=== PATIENT | male | born 1940 | race Caucasian/White ===

== ENCOUNTER → 2016-10-03 | Outpatient (CLI) | payer OTHER | LOC: RAD 09:40 | PROVIDERS: ATTEND Family Medicine | DX: R42 Dizziness and giddiness (principal) | CPT/HCPCS: 70551 ==

== ENCOUNTER 2016-11-22 08:48 | Day surgery (SDC) | payer OTHER, MEDICARE ==
--- NOTE | 2016-11-16 14:08 | HISTORY AND PHYSICAL E ---
History and Physical NAME: YARIEL NOLAND : 1940 AGE: 76Y ADMITTED: 11/22/2016 ROOM: REFERRING: [place] The patient is 76, for colon screening. The patient is under treatment for gum disease. He has gum issues and he is on penicillin 4 times daily. SOCIAL HISTORY: Single. Quit smoking. Rare alcohol. SURGERIES: Cancer of skin, face. Cataract bilateral. Colonoscopy 10 years ago in [place]. He has polyps. History of polyps 10 years ago. REVIEW OF SYSTEMS: HEENT/sinuses/respiratory: Negative. Cardiac: Hypertension, high cholesterol. Endocrine negative. GI: Colon screening. FAMILY HISTORY: Oncology, hematology: Skin cancer. Father had heart disease. Mom of old age, pneumonia. PHYSICAL EXAMINATION: GENERAL: Pleasant. VITAL SIGNS: Blood pressure 130/70, pulse 80, respirations 18, temp 98. Weight 177. HEENT: Normal. NECK: Supple. CARDIOVASCULAR: Normal. LUNGS: Clear. ABDOMEN: Soft. NEUROLOGIC: Negative. CONCLUSION: Colon screening. MEDICATIONS: Cholesterol medications, omeprazole, multivitamin, penicillin. PLAN: Colonoscopy scheduled for 11/22. Today is 11/16. DICTATING PHYSICIAN: ZAN CHAVEZ M.D. [id number] PHY#: [id number] ID: [id number] JOB#: [id number] ACCT: [id number] cc:ZAN CHAVEZ M.D. >
[2016-11-22] MEDS ORDERED: PROMETHAZINE HCL INJ 25 MG/1 ML VIAL ONE (08:53)
[2016-11-22] MEDS ORDERED: NALOXONE HCL INJ/PF 0.4 MG/1 ML SDV ONE (08:53)
[2016-11-22] MEDS ORDERED: GLYCOPYRROLATE INJ 0.4 MG/2 ML VIAL ONE (08:53)
[2016-11-22] MEDS ORDERED: LIDOCAINE 2% JELLY 30 ML TUBE ONE (08:53)
[2016-11-22] MEDS ORDERED: ONDANSETRON HCL INJ/PF 4 MG/2 ML SDV ONE (08:53)
[2016-11-22] MEDS ORDERED: FLUMAZENIL INJ 0.5 MG/5 ML VIAL IV ONE (08:55)
[2016-11-22] MEDS ORDERED: GLUCAGON,HUMAN RECOMB 1 MG INJ ONE (08:55)
[2016-11-22] MEDS ORDERED: EPINEPHRINE INJ 1 MG/10 ML DISP.SYRIN ONE (08:55)
[2016-11-22] MEDS: MIDAZOLAM 2 MG/2 ML INJ ONE ×2 (09:12→09:18)
[2016-11-22] MEDS: FENTANYL CITRATE INJ/PF 100 MCG/2 ML AMPUL ONE ×3 (09:14→09:24)
[2016-11-22 10:41] VITALS: BP 126/66
[2016-11-22 10:57] LABS: HEMATOCRIT 37.1 % (37.9-51.0); HEMOGLOBIN 12.5 g/dL (13.5-17.0); HGB HCT DIFFERENCE 0.4; MEAN CORPUSCULAR HGB CONC 33.6 g/dL (32.0-36.0); MEAN CORPUSCULAR VOLUME 92 fl (80-97); RED BLOOD COUNT 4.02 10^6/uL (4.35-5.55); SEGMENTED NEUTROPHILS % (AUTO) 71.1 % (42-78); WHITE BLOOD COUNT 6.9 10^3/uL (4.0-10.5)
[2016-11-22 10:58] LABS: ABSOLUTE BASOPHILS # (AUTO) 0.1 10^3/uL (0.0-0.2); ABSOLUTE EOSINOPHILS # (AUTO) 0.3 10^3/uL (0.0-0.6); ABSOLUTE LYMPHOCYTES (AUTO) 0.8 10^3/uL (0.5-4.7); ABSOLUTE MONOCYTES (AUTO) 0.8 10^3/uL (0.1-1.4); ABSOLUTE NEUT (AUTO) 4.9 10^3/uL (1.7-8.2); BASOPHILS % (AUTO) 0.7 % (0-2); EOSINOPHILS % (AUTO) 4.7 % (0-6); LYMPHOCYTES % (AUTO) 12.2 % (13-45); MONOCYTES % (AUTO) 11.3 % (3-13)
--- NOTE | 2016-11-22 14:05 | DISCHARGE SUMMARY E ---
Discharge Summary NAME: YARIEL NOLAND : 1940 AGE: 76Y ADMITTED: 11/22/2016 DISCHARGED: 11/22/2016 SUMMARY: The patient is 76 and presented for follow-up colonoscopy. History of polyps years ago in [place], [place]. Today's colon shows diminutive rectal polyp and cecal polyp, redundant colon, difficult sigmoid and descending colon intubation. DISCHARGE PLAN: Full liquids to soft, low-residue diet in 3 days. Baseline CBC and prostatic specific antigen. Consider follow-up colonoscopy in 3-5 years. DICTATING PHYSICIAN: ZAN CHAVEZ M.D. [id number] PHY#: [id number] ID: [id number] JOB#: [id number] ACCT: [id number] cc:ZAN CHAVEZ M.D. >
--- NOTE | 2016-11-22 14:06 | OPERATIVE REPORT E ---
Operative Report NAME: YARIEL NOLAND : 1940 AGE: 76Y DATE OF SURGERY: 11/22/2016 ROOM: PREOPERATIVE DIAGNOSIS: Followup regarding history of polyps. POSTOPERATIVE DIAGNOSES: 1. External hemorrhoids. 2. Mild diminutive rectal polyps. 3. One mm cecal polyp. PROCEDURE: Colonoscopy. SURGEON: ZAN CHAVEZ M.D. ANESTHESIA: Versed 2 and fentanyl 100. TISSUE REMOVED OR ALTERED: Biopsy of cecum, 1 mm polyp. Biopsy of rectum, multiple polyps 1-2 mm in size each. Hyperplastic benign looking polyps. RECOMMENDATIONS: Followup colonoscopy 3-5 years. FINDINGS: Redundant colon. Moderate amount of full liquid stool. Colonoscopy successful to the cecum. DESCRIPTION OF PROCEDURE: Rectal exam shows enlarged prostate. The rectum shows diminutive polyps. Sigmoid descending colon redundant, normal. Transverse colon redundant, moderate amount of full liquid stool, normal. Ascending colon normal. Cecum shows diminutive polyp removed by biopsy. Ileocecal valve looks normal. Scope withdrawn from cecum, ascending, transverse, descending, sigmoid, all the way to the rectum. CONCLUSION: Diminutive rectal polyp and cecal polyp. PLAN: Hold aspirin and nonsteroidal for 3 days. Full liquid to soft low residue diet for 3 days. DICTATING PHYSICIAN: ZAN CHAVEZ M.D. [id number] Y#: [id number] ID: [id number] JOB#: [id number] ACCT: [id number] cc:ZAN CHAVEZ M.D. >
== END 2016-11-22 10:42 | disposition home or self-care (01) ==
LOC: END 08:48
PROVIDERS: ATTEND Specialist
PROC: 0DBP8ZX Excision of Rectum, Via Natural or Artificial Opening Endoscopic, Diagnostic (ICD-10-PCS; 2016-11-22)
PROC: 0DBH8ZX Excision of Cecum, Via Natural or Artificial Opening Endoscopic, Diagnostic (ICD-10-PCS; principal; 2016-11-22 09:00)
DX: Z12.11 Encounter for screening for malignant neoplasm of colon (principal); D12.0 Benign neoplasm of cecum; K62.1 Rectal polyp; K64.4 Residual hemorrhoidal skin tags; R97.20 Elevated prostate specific antigen [PSA]; I10 Essential (primary) hypertension; E78.00 Pure hypercholesterolemia, unspecified; Z85.828 Personal history of other malignant neoplasm of skin; Z87.891 Personal history of nicotine dependence
CPT/HCPCS: 45380; 36415; 85025; 88305 ×2; G0103; J2250; J3010; J1610; J2405; J0171; J2310; J2550; J3490